=== PATIENT | male | born 1955 | race Caucasian/White ===

== ENCOUNTER 2017-11-19 14:54 | Inpatient (IN) ==
[2017-11-19 16:21] LABS: Basophils % 0.5 % (0.0-0.8); Eosinophils # 0.2 10*3/uL (0.0-0.87); Eosinophils % 2.8 % (0.00-10.9); Immature Granulocytes % 0.8 %; Immature Granulocytes Absolute 0.05 #; Lymphocytes # 1.7 10*3/uL (1.4-4.0); Lymphocytes % 26.7 % (21.2-54.2); Mean Corpuscular HGB Conc 34.4 GM/DL (32-36); Mean Corpuscular Hemoglobin 32 PG (27-34); Mean Corpuscular Volume 92.2 FL (87-102); Mean Platelet Volume 10.8 FL (9.6-12.0); Monocytes # 0.8 10*3/uL (0.11-0.8); Monocytes % 12.7 % (1.7-12.7); Neutrophils # 3.6 10*3/uL (1.4-7.4); Neutrophils % 56.5 % (38.7-73.9); Platelet Count 181 T/CUMM (130-400); Red Blood Count 3.47 MC/CUMM (3.8-5.5); Red Cell Distribution Width 12.6 % (9.3-17.3); White Blood Count 6.4 T/CUMM (4-12)
[2017-11-19 16:35] LABS: Calcium 8.1 MG/DL (8.5-10.1); Osmolality,Calculated 276.5 MOS/KG (273-304); Potassium 4.7 MMOL/L (3.5-5.1)
[2017-11-19] MEDS ORDERED: ONDANSETRON 4 MG/2 ML VIAL IV PRN (18:09)
[2017-11-19] MEDS ORDERED: NALOXONE 0.4 MG/ML VIAL IV PRN (18:09)
[2017-11-19] MEDS ORDERED: ACETAMINOPHEN 325 MG TABLET PO PRN (18:09)
[2017-11-19] MEDS ORDERED: SODIUM CHLORIDE 0.9% 1,000 ML IV SCH (18:30)
[2017-11-19] MEDS ORDERED: PIPERACILLIN/TAZOBACTAM 3,375 MG in SODIUM CHLORIDE 0.9% 100 ML IV SCH (20:00)
[2017-11-19] MEDS ORDERED: DOCUSATE SODIUM 100 MG CAPSULE PO SCH (21:00)
[2017-11-19] MEDS ORDERED: ENOXAPARIN 40 MG/0.4 ML SYRINGE SUBCUT SCH (21:00)
[2017-11-20 00:33] LABS: Apearance,Urine CLEAR (Clear); Bilirubin,Urine Negative (Negative); Blood, Urine Negative (Negative); Glucose,Urine (UA) Negative (Negative); Ketones,Urine Negative (Negative); Mucus,Urine Occasional /LPF (Occasional); Nitrite,Urine Negative (Negative); Protein,Urine Negative; Urine Color Yellow (Yellow); Urine Urobilinogen < 2.0 EU/DL (0.2-1.0); WBC,Urine <1 /HPF (0-6)
[2017-11-20] MEDS: FAMOTIDINE 20 MG TABLET PO SCH (05:40)
[2017-11-20 07:32] LABS: Basophils % 0.5 % (0.0-0.8); Eosinophils # 0.2 10*3/uL (0.0-0.87); Eosinophils % 3.3 % (0.00-10.9); Hematocrit 31.1 VOL% (42.0-52.0); Immature Granulocytes % 0.3 %; Immature Granulocytes Absolute 0.02 #; Lymphocytes # 2.1 10*3/uL (1.4-4.0); Lymphocytes % 28.4 % (21.2-54.2); Mean Corpuscular HGB Conc 35.4 GM/DL (32-36); Mean Corpuscular Hemoglobin 32 PG (27-34); Mean Corpuscular Volume 89.6 FL (87-102); Mean Platelet Volume 10.7 FL (9.6-12.0); Monocytes # 0.8 10*3/uL (0.11-0.8); Monocytes % 11.3 % (1.7-12.7); Neutrophils # 4.1 10*3/uL (1.4-7.4); Neutrophils % 56.2 % (38.7-73.9); Platelet Count 198 T/CUMM (130-400); Red Blood Count 3.47 MC/CUMM (3.8-5.5); Red Cell Distribution Width 12.9 % (9.3-17.3); White Blood Count 7.3 T/CUMM (4-12)
[2017-11-20 07:52] LABS: Albumin 3.5 G/DL (3.4-5.0); Calcium 8.6 MG/DL (8.5-10.1); Osmolality,Calculated 275.5 MOS/KG (273-304); Potassium 4.5 MMOL/L (3.5-5.1)
[2017-11-20] MEDS ORDERED: CLINDAMYCIN INJ 600 MG in PREMIX 1 EACH IV SCH (08:30)
[2017-11-20] MEDS ORDERED: MEGESTROL 400 MG/10 ML UDCUP PO PRN (08:32)
[2017-11-20] MEDS ORDERED: PANTOPRAZOLE 40 MG TABLET PO SCH (09:00)
[2017-11-20] MEDS: FOLIC ACID 0.4 MG TABLET PO SCH (10:44)
[2017-11-20] MEDS: FUROSEMIDE 20 MG/2 ML VIAL IV SCH (10:44)
[2017-11-20] MEDS: CLINDAMYCIN INJ 600 MG in PREMIX 1 EACH IV SCH ×2 (10:45→18:03)
[2017-11-20] MEDS ORDERED: FUROSEMIDE 20 MG/2 ML VIAL IV ONE (11:32)
[2017-11-20] MEDS: KETOROLAC 15 MG/1 ML VIAL IV SCH ×2 (11:46→18:02)
[2017-11-20] MEDS: MORPHINE ER 30 MG TABLET PO SCH (18:02)
[2017-11-20] MEDS ORDERED: tiZANidine 4 MG TABLET PO SCH (21:00)
[2017-11-20] MEDS ORDERED: FAMOTIDINE 20 MG TABLET PO SCH (21:00)
[2017-11-21] MEDS: CLINDAMYCIN INJ 600 MG in PREMIX 1 EACH IV SCH (02:54)
[2017-11-21] MEDS: KETOROLAC 15 MG/1 ML VIAL IV SCH ×3 (02:54→11:44)
[2017-11-21] MEDS: MORPHINE ER 30 MG TABLET PO SCH (06:13)
[2017-11-21 06:44] LABS: Calcium 8.2 MG/DL (8.5-10.1); Osmolality,Calculated 274.8 MOS/KG (273-304); Potassium 4.2 MMOL/L (3.5-5.1)
[2017-11-21] MEDS: FUROSEMIDE 20 MG/2 ML VIAL IV SCH (09:17)
[2017-11-21] MEDS: FAMOTIDINE 20 MG TABLET PO SCH (09:18)
[2017-11-21] MEDS: FOLIC ACID 0.4 MG TABLET PO SCH (09:18)
[2017-11-21 11:14] VITALS: BP 142/75
[2017-11-21] MEDS ORDERED: CLINDAMYCIN INJ 300 MG in PREMIX 1 EACH IV SCH (19:00)
== END 2017-11-21 12:15 | disposition home or self-care (01) | DRG 603 ==
LOC: N.ED 14:54 → N.EDINP 18:09 → N.5E 21:10
PROVIDERS: ADMIT Nurse Practitioner; ATTEND Internal Medicine